=== PATIENT | female | born 1980 | race Caucasian/White ===

== ENCOUNTER 2024-07-18 12:12 | Emergency (ER) | payer SELFPAY ==
[2024-07-18 12:16] VITALS: BP 121/65; PULSE 73; TEMP 36.5; O2SAT 97; BMI 29.1
--- NOTE | 2024-07-18 12:31 | ED.GENADUL1 ---
HPI HPI - General Adult General Chief complaint: Urogenital-Female Stated complaint: UTI COMPLAINTS Time Seen by Provider: 07/18/24 12:16 Source: patient Mode of arrival: walk-in Limitations: no limitations History of Present Illness HPI narrative: 43-year-old female presents to the emergency department for dysuria and frequency. She has been having issues with this for the last 5 weeks since she had a procedure for fibroids. She did not have a hysterectomy. She reports that she has been on 2 different antibiotics including Macrobid and Levaquin and she thinks she still has a UTI. No fever or vomiting. Related Data Allergies Allergy/AdvReac Type Severity Reaction Status Date / Time bupropion (From Wellbutrin) AdvReac Intermediate Hallucinati Verified 07/18/24 12:23 ng Penicillins AdvReac Intermediate Hallucinati Verified 07/18/24 12:23 ng Opioid HPI Opioid Management Most Recent Opioid Data: No Data to Display Review of Systems ROS Narrative A ten point review of systems is negative except as noted above. PFSH PFSH Social History Little interest or pleasure in doing things: not at all Feeling down, depressed, or hopeless: not at all Exam Narrative Exam Narrative: Nurses note and vital signs reviewed and patient is not hypoxic. General: The patient appears well and in no apparent distress. Patient is resting comfortably on cart. Skin: Warm, dry, no pallor noted. There is no rash noted. Head: Normocephalic, atraumatic Eye: Normal conjunctiva, no drainage Ears, Nose, Mouth, and Throat: oral mucosa is moist. Nares patent. Cardiovascular: Regular Rate and Rhythm Respiratory: Patient is in no distress, no accessory muscle use, lungs are clear to auscultation, no wheezing, rales or rhonchi Back: non-tender GI: Soft and nontender Musculoskeletal: The patient has no evidence of calf tenderness, no pitting edema, symmetrical pulses noted bilaterally Neurological: A&O, normal speech Psychiatric: Cooperative Constitutional Vital Signs, click to edit/add: Last Vital Signs Temp 97.7 F 07/18/24 12:16 Pulse 73 07/18/24 12:16 Resp 18 07/18/24 12:16 BP 121/65 07/18/24 12:16 Pulse Ox 97 07/18/24 12:16 O2 Del Method Room Air 07/18/24 12:16 Course Vital Signs Vital signs: Vital Signs Temperature 97.7 F 07/18/24 12:16 Pulse Rate 73 07/18/24 12:16 Respiratory Rate 18 07/18/24 12:16 Blood Pressure 121/65 07/18/24 12:16 Pulse Oximetry 97 07/18/24 12:16 Oxygen Delivery Method Room Air 07/18/24 12:16 Temperature 97.7 F 07/18/24 12:16 Pulse Rate 73 07/18/24 12:16 Respiratory Rate 18 07/18/24 12:16 Blood Pressure 121/65 07/18/24 12:16 Pulse Oximetry 97 07/18/24 12:16 Oxygen Delivery Method Room Air 07/18/24 12:16 Medical Decision Making MDM Narrative Medical decision making narrative: Urinalysis is negative, no evidence of UTI. 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 Treatment diagnosis and follow-up were discussed with the patient. Differential Diagnosis Differential Diagnosis: UTI, postoperative pain Lab Data Lab results reviewed: Yes I reviewed the patient's lab results Labs: Lab Results 07/18/24 Range/Units 12:26 Urine Color Lt. yellow (YELLOW) Urine Clarity Clear (CLEAR) Urine pH 5.5 (5.0-9.0) Ur Specific [place] <=1.005 A (1.005-1.025) Urine Protein Negative (NEG/TRACE) mg/dL Urine Glucose (UA) Negative (NEGATIVE) mg/dL Urine Ketones Negative (NEGATIVE) mg/dL Urine Occult Blood Trace-i (NEGATIVE) Urine Nitrite Negative (NEGATIVE) Urine Bilirubin Negative (NEGATIVE) Urine Urobilinogen 0.2 (0.2-1.0) EU/dL Ur Leukocyte Esterase Negative (NEGATIVE) Urine RBC 0-2 (0-2) #/HPF Urine WBC None seen (NONE SEEN) #/HPF Ur Squamous Epith Cells Moderate A (NONE/RARE) #/LPF Urine Crystals None seen (None Seen) #/HPF Urine Bacteria Small A (NONE SEEN) #/HPF Urine Casts None seen (NONE SEEN) #/LPF Urine Mucus Trace A (NONE SEEN) Ur Culture Indicated? Yes-[facility] [place] Urine HCG, Qual Negative (NEGATIVE) Discharge Plan Discharge Chief Complaint: Urogenital-Female Clinical Impression: Abdominal pain Patient Disposition: Home, Self-Care Time of Disposition Decision: 14:00 Condition: Good Mode of Transportation: Private Vehicle Print Language: Nepali Instructions: Abdominal Pain (ED) Additional Instructions: Follow-up with your game preserve manager Referrals: Physician,Non-Staff, MD [Primary Care Provider] - 1 week
[2024-07-18 12:41] LABS: HCG Qualitative Urine* NEGATIVE (NEGATIVE); Internal Control Within Normal Limits
[2024-07-18 13:22] LABS: Bilirubin Urine NEGATIVE (NEGATIVE); Blood Urine TRACE-I (NEGATIVE); Clarity Urine CLEAR (CLEAR); Color Urine LT. YELLOW (YELLOW); Glucose Urine UA NEGATIVE (NEGATIVE); Ketones Urine NEGATIVE (NEGATIVE); Leukocyte Esterase Urine NEGATIVE (NEGATIVE); Nitrite Urine NEGATIVE (NEGATIVE); Protein Urine NEGATIVE (NEG/TRACE); Specific Gravity Urine <=1.005 (1.005-1.025); Urobilinogen Urine 0.2 EU/dL (0.2-1.0); pH Urine 5.5 (5.0-9.0)
[2024-07-18 13:31] LABS: Bacteria Urine SMALL #/HPF (NONE SEEN); Mucus Urine TRACE (NONE SEEN); RBC Urine 0-2 #/HPF (0-2); WBC Urine NONE SEEN #/HPF (NONE SEEN)
[2024-07-18 13:32] LABS: Cast Seen? NONE SEEN #/LPF (NONE SEEN); Crystals Seen? None Seen #/HPF (None Seen); Squamous Epithelial Cell Urine MODERATE #/LPF (NONE/RARE); Urine Culture Indicated YES-FRMC
== END 2024-07-18 14:07 | disposition home or self-care (01) ==
PROVIDERS: Emergency Provider Emergency Medicine
DX: R10.9 Unspecified abdominal pain (principal); R30.0 Dysuria; Z87.440 Personal history of urinary (tract) infections
CPT/HCPCS: 81001; 84703; 87086; 99285

== ENCOUNTER 2024-09-03 19:02 | Emergency (ER) | payer SELFPAY ==
[2024-09-03 19:37] VITALS: BP 95/62; PULSE 71; TEMP 36.3; O2SAT 100; BMI 29.1
[2024-09-03 20:12] VITALS: BP 113/61; PULSE 81; O2SAT 100
--- NOTE | 2024-09-03 20:17 | ED_ITS ---
HPI HPI - General Adult General Chief complaint: Headache Stated complaint: nausea Time Seen by Provider: 09/03/24 20:11 Source: patient and family Mode of arrival: ambulance History of Present Illness HPI narrative: patient states she had hysterectomy 06/2024. Since then she has developed headaches. States she is prescribed fioricet and reglan for her headache but not able to take today because of vomiting. States she had MRI earlier this month at [facility] and there were some lesions noted. She is scheduled to see Neurology. States headaches are now more frequent and involve her entire head. Her neck is sore as are her shoulders. No paresthesia or extremity weakness. No fever or neck stiffness. Does have photophobia Related Data Home Medications ?Medication ?Instructions ?Recorded ?Confirmed [id number] 1 tab PO Q6H PRN estephania n 09/03/24 09/03/24 50 mg-325 mg-40 mg tablet metoclopramide HCl 5 mg tablet 10 mg PO Q8H 09/03/24 0 09/03/24 Allergies Allergy/AdvReac Type Severity Reaction Status Date / Time bupropion (From Wellbutrin) AdvReac Intermediate Hallucinati Verified 09/03/24 19:37 ng Penicillins AdvReac Intermediate Hallucinati Verified 09/03/24 19:37 ng Opioid HPI Opioid Management Most Recent Opioid Data: Last Pain Scale 8 Today, 21:18 Last ED Pain Assessment Today, 21:18 Review of Systems ROS Status of ROS 10 or more systems reviewed and unremark able except as noted in history and below PFSH PFSH Social History Little interest or pleasure in doing things: not at all Feeling down, depressed, or hopeless: not at all Exam Constitutional Vital Signs, click to edit/add: Last Vital Signs Temp 97.4 F L 09/03/24 19:37 Pulse 62 09/03/24 21:48 Resp 17 09/03/24 21:48 BP 103/67 09/03/24 21:48 Pulse Ox 98 09/03/24 21:48 O2 Del Method Room Air 09/03/24 19:37 Common normals: oriented x3, alert and well nourished Other: eyes covered due to light sensitivity HENMT Common normals: normocephalic and head/scalp atraumatic Neck & C-Spine Common normals: full ROM and supple Respiratory Common normals: normal respiratory effort, no retractions, no use of accessory muscles and clear to auscultation bilaterally Cardio Common normals: regular rate, regular rhythm, S1 normal heart sound and S2 normal heart sound Extremity Common normals: normal to inspection and full ROM Neuro Common normals: oriented x3, CN's II-XII intact bilaterally, moves all extrem ities and no focal motor deficits Psych Appearance: grossly normal Course Vital Signs Vital signs: Vital Signs Temperature 97.4 F L 09/03/24 19:37 Pulse Rate 71 09/03/24 19:37 Respiratory Rate 22 H 09/03/24 19:37 Blood Pressure 95/62 09/03/24 19:37 Pulse Oximetry 100 09/03/24 19:37 Oxygen Delivery Method Room Air 09/03/24 19:37 Temperature 97.4 F L 09/03/24 19:37 Pulse Rate 62 09/03/24 21:48 Respiratory Rate 17 09/03/24 21:48 Blood Pressure 103/67 09/03/24 21:48 Pulse Oximetry 98 09/03/24 21:48 Oxygen Delivery Method Room Air 09/03/24 19:37 Medical Decision Making MDM Narrative Medical decision making narrative: patient presents with migraine headache. Have been occuring since 06/2024. MRI 08/06/24 from [facility] demonstrated no acute abnormalities. Few punctate nonaggressive foci of flair hypointensity within the right frontal white matter nonspecific though most commonly seen in the setting of chronic ischemic small vessel disease and also in the setting of chronic headaches. Patient medicated for migraine and is feeling better but states she still feels muscle tightness. Medicated with ativan 0.5. Patient is feeling better and discharged home to follow up with her doctor and her scheduled appointment with Neurology Lab Data Labs: Lab Results 09/03/24 Range/Units 20:10 WBC 14.0 H (4.0-11.0) 10^3/uL RBC 4.59 (4.20-5.40) 10^6/uL Hgb 14.2 (12.0-16.0) g/dL Hct 42.6 (36.0-48.0) % MCV 92.8 (81.0-99.0) fL MCH 30.9 (26.7-34.0) pg MCHC 33.3 (29.9-35.2) g/dL RDW 12.2 (11.0-15.0) % Plt Count 318 (150-450) 10^3/uL MPV 9.6 (9.5-13.5) fL Neut % (Auto) 78.7 H (43.0-75.0) % Lymph % (Auto) 14.5 L (20.5-60.0) % [place] % (Auto) 5.4 (1.7-12.0) % Eos % (Auto) 0.5 L (0.9-7.0) % Baso % (Auto) 0.5 (0.2-2.0) % Neut # (Auto) 11.0 H (1.4-6.5) 10^3/uL Lymph # (Auto) 2.0 (1.2-3.8) 10^3/uL [place] # (Auto) 0.8 (0.3-0.8) 10^3/uL Eos # (Auto) 0.1 (0.0-0.7) 10^3/uL Baso # (Auto) 0.1 (0.0-0.1) 10^3/uL Abs Immat Gran (auto) 0.05 H (0.00-0.03) 10^3/uL Imm/Tot Granulo (auto) 0.4 (0.0-0.5) % Sodium 142 (136-145) mmol/L Potassium 4.0 (3.5-5.1) mmol/L Chloride 102 (98-107) mmol/L Carbon Dioxide 31.0 (21.0-32.0) mmol/L Anion Gap 13.0 BUN 15.0 (7.0-18.0) mg/dL Creatinine 0.80 (0.55-1.02) mg/dL Est GFR ( Amer) >60 (>=60 mL/min/1.73m^2) Est GFR (Non-Af Amer) >60 (>=60 mL/min/1.73m^2) BUN/Creatinine Ratio 18.8 Glucose 123 H (74-106) mg/dL Calcium 9.5 (8.5-10.1) mg/dL Discharge Plan Discharge Chief Complaint: Headache Clinical Impression: Migraine Patient Disposition: Home, Self-Care Prescriptions / Home Meds: No Action [id number] 50-325-40 mg tablet 1 tab PO Q6H PRN (Reason: pain) metoclopramide HCl 5 mg tablet 10 mg PO Q8H Print Language: Kosovan Instructions: Migraine Headache (ED) Additional Instructions: follow up with your doctor this week for recheck Referrals: Physician,Non-Staff, MD [Primary Care Provider] - 1 week
--- NOTE | 2024-09-03 20:19 | PC.NURSE ---
complains of headache onset 06/2024 and nausea today,and unable to her medication
[2024-09-03 20:24] LABS: Basophils Absolute Auto 0.1 10^3/uL (0.0-0.1); Basophils Percent Auto 0.5 % (0.2-2.0); Eosinophils Absolute Auto 0.1 10^3/uL (0.0-0.7); Eosinophils Percent Auto 0.5 % (0.9-7.0); Hematocrit 42.6 % (36.0-48.0); Hemoglobin 14.2 g/dL (12.0-16.0); Immature Granulocytes Abs Auto 0.05 10^3/uL (0.00-0.03); Immature Granulocytes Pct Auto 0.4 % (0.0-0.5); Lymphocytes Percent Auto 14.5 % (20.5-60.0); Mean Corpuscular HGB Conc 33.3 g/dL (29.9-35.2); Mean Corpuscular Hemoglobin 30.9 pg (26.7-34.0); Mean Corpuscular Volume 92.8 fL (81.0-99.0); Mean Platelet Volume 9.6 fL (9.5-13.5); Monocytes Absolute Auto 0.8 10^3/uL (0.3-0.8); Monocytes Percent Auto 5.4 % (1.7-12.0); Neutrophils Percent Auto 78.7 % (43.0-75.0); Platelet Count 318 10^3/uL (150-450); Red Blood Count 4.59 10^6/uL (4.20-5.40); Red Cell Distribution Width 12.2 % (11.0-15.0)
[2024-09-03 20:34] LABS: BUN Creatinine Ratio 18.8; Calcium 9.5 mg/dL (8.5-10.1); Chloride 102 mmol/L (98-107); Estimated GFR (African America >60 (>=60 mL/min/1.73m^2); Estimated GFR (Non-African Ame >60 (>=60 mL/min/1.73m^2); Glucose 123 mg/dL (74-106); Sodium 142 mmol/L (136-145)
[2024-09-03] MEDS: 0.9 % SODIUM CHLORIDE 1,000 ML 999 ML IV (20:42)
[2024-09-03] MEDS: MAGNESIUM SULFATE IN WATER 2 GM/50 ML PREMIX IV (20:43)
[2024-09-03] MEDS: METOCLOPRAMIDE HCL 10 MG/2 ML VIAL IVP (20:46)
[2024-09-03] MEDS: METHYLPREDNISOLONE SOD SUCC PF 125 MG/2 ML VIAL IVP (20:46)
--- NOTE | 2024-09-03 21:18 | PC.NURSE ---
this patient lying on her right side on the bed more comfortable, no more episode of vomiting and her headache is down to 8/10 now this patient voices no other concerns and shows no signs of distress
[2024-09-03 21:48] VITALS: BP 103/67; PULSE 62; O2SAT 98
[2024-09-03] MEDS: LORAZEPAM 2 MG/ML VIAL 0.5 MG IV (21:49)
--- NOTE | 2024-09-03 22:21 | PC.NURSE ---
this patient resting on her right side on the bed, this patient her headache is at 7/10, this is down from 10/10 and no episode of vomiting or nausea at this time this patient voices no concerns and shows no sign sof distress
[2024-09-03 22:57] VITALS: BP 103/54; PULSE 93; TEMP 37.1; O2SAT 96
--- NOTE | 2024-09-03 23:05 | PC.NURSE ---
i gave this patient verbal and written discharge orders along with 2 e-scripts and this patient voices yes to understanding these. at time of discharge this patient voices no concerns and shows no signs of distress
== END 2024-09-03 23:03 | disposition home or self-care (01) ==
PROVIDERS: Emergency Provider Internal Medicine
DX: G43.909 Migraine, unspecified, not intractable, without status migrainosus (principal); Z90.710 Acquired absence of both cervix and uterus
CPT/HCPCS: 36415; 80048; 85025; 96365; 96375; 99284; J2060; J2765; J2919; J3475